=== PATIENT | male | born 1955 | race Asian ===

== ENCOUNTER 2023-11-22 06:16 | Day surgery (SDC) | payer OTHER ==
[2023-11-14 09:54] VITALS: BMI 24.7
[2023-11-22] MEDS ORDERED: PROPOFOL 40 ML ONE (07:12)
[2023-11-22] MEDS ORDERED: MIDAZOLAM HCL 2 MG/2 ML SINGLE DOSE VIAL ONE (07:12)
[2023-11-22] MEDS ORDERED: BUPIVACAINE LIPOSOME/PF (EXPAREL) 266 MG/20 ML VIAL ONE (07:15)
[2023-11-22] MEDS ORDERED: ACETAMINOPHEN INJECTION 100 ML IVPB ONE (07:15)
[2023-11-22] MEDS ORDERED: BUPIVACAINE HCL/PF 0.5% (5MG/ML) 10 ML VIAL ONE (07:15)
[2023-11-22] MEDS ORDERED: ACETAMINOPHEN 325 MG TABLET (FP) PO PRN (07:30)
[2023-11-22] MEDS ORDERED: ONDANSETRON 4 MG/2 ML VIAL IVPUSH PRN ×2 (07:30→10:17)
[2023-11-22] MEDS ORDERED: oxyCODONE HCL 5 MG TABLET PO PRN (07:30)
[2023-11-22] MEDS ORDERED: ceFAZolin SODIUM 1 GM VIAL ONE ×2 (08:08)
[2023-11-22] MEDS ORDERED: HYDROCORTISONE SOD SUCCINATE 100 MG/2 ML VIAL ONE (08:08)
[2023-11-22] MEDS ORDERED: TRANEXAMIC ACID 1000 MG/10 ML VIAL ONE ×2 (08:09→09:15)
[2023-11-22] MEDS ORDERED: ONDANSETRON 4 MG/2 ML VIAL ONE (08:30)
[2023-11-22] MEDS ORDERED: KETOROLAC TROMETHAMINE 30 MG/1 ML VIAL ONE (08:30)
[2023-11-22] MEDS ORDERED: PROPOFOL 20 ML ONE (09:51)
[2023-11-22] MEDS ORDERED: predniSONE 5 MG TABLET (UD) PO SCH ×2 (10:00→14:00)
[2023-11-22] MEDS ORDERED: MAGNESIUM HYDROX 2400MG/30ML ORAL SUSPENSION 30 ML CUP PO PRN (10:17)
[2023-11-22] MEDS ORDERED: MAG HYDROX/AL HYDROX/SIMETH 30 ML UNIT-DOSE CUP PO PRN (10:17)
[2023-11-22] MEDS: LACTATED RINGERS SOLUTION 1,000 ML IV SCH (11:30)
[2023-11-22 12:35] VITALS: RESP 18
[2023-11-22] MEDS ORDERED: predniSONE 5 MG TABLET (UD) PO ONE (14:00)
[2023-11-22] MEDS: ACETAMINOPHEN 1000 MG/100 ML BAG IVPB SCH (17:35)
[2023-11-22] MEDS: CEFAZOLIN SODIUM 2 GM in DEXTROSE 5%-WATER 100 ML IVPB SCH (17:35)
[2023-11-22] MEDS: oxyCODONE HCL 5 MG TABLET PO PRN (19:58)
[2023-11-22] MEDS: ASPIRIN 81 MG CHEWABLE TABLETS PO SCH (21:29)
[2023-11-22] MEDS: CELECOXIB 100 MG CAPSULE PO SCH (21:29)
[2023-11-22] MEDS: ASCORBIC ACID 500 MG TABLET (FP) PO SCH (21:29)
[2023-11-22] MEDS: SENNOSIDES/DOCUSATE COMBO (SENNA PLUS) TABLET (UD) PO SCH (21:29)
[2023-11-22] MEDS: FAMOTIDINE 20 MG TABLET PO SCH (21:29)
[2023-11-22] MEDS: GABAPENTIN 300 MG CAPSULE PO SCH (21:30)
[2023-11-23] MEDS: oxyCODONE HCL 5 MG TABLET PO PRN ×4 (02:01→14:18)
[2023-11-23] MEDS: CEFAZOLIN SODIUM 2 GM in DEXTROSE 5%-WATER 100 ML IVPB SCH (02:01)
[2023-11-23] MEDS: ACETAMINOPHEN 1000 MG/100 ML BAG IVPB SCH ×2 (02:02→09:14)
[2023-11-23] MEDS: LACTATED RINGERS SOLUTION 1,000 ML IV SCH (07:32)
[2023-11-23] MEDS ORDERED: TRANEXAMIC ACID 1000 MG/10 ML VIAL IVPUSH ONE (09:00)
[2023-11-23] MEDS ORDERED: TRANEXAMIC ACID 1000 MG/10 ML VIAL IVPB ONE (09:00)
[2023-11-23] MEDS ORDERED: TRANEXAMIC ACID - 1,000 MG in SODIUM CHLORIDE 100 ML IVPB ONE (09:00)
[2023-11-23] MEDS: CEPHALEXIN MONOHYDRATE 500 MG CAPSULE (UD) PO SCH ×2 (09:12→16:08)
[2023-11-23] MEDS: ASPIRIN 81 MG CHEWABLE TABLETS PO SCH (09:12)
[2023-11-23] MEDS: GABAPENTIN 300 MG CAPSULE PO SCH (09:12)
[2023-11-23] MEDS: CELECOXIB 100 MG CAPSULE PO SCH (09:12)
[2023-11-23] MEDS: ASCORBIC ACID 500 MG TABLET (FP) PO SCH (09:12)
[2023-11-23] MEDS: SENNOSIDES/DOCUSATE COMBO (SENNA PLUS) TABLET (UD) PO SCH (09:13)
[2023-11-23] MEDS: FAMOTIDINE 20 MG TABLET PO SCH (09:13)
[2023-11-23] MEDS ORDERED: MULTIVITAMINS (DAILY MVI) TABLET (FP) PO SCH (10:00)
[2023-11-23] MEDS ORDERED: LEFLUNOMIDE 10 MG TABLET PO SCH (10:00)
[2023-11-23] MEDS ORDERED: TELMISARTAN PO SCH (10:00)
[2023-11-23] MEDS ORDERED: amLODIPine BESYLATE 5 MG TABLET (FP) PO SCH (10:00)
[2023-11-23] MEDS ORDERED: LOSARTAN POTASSIUM 50 MG TABLET PO SCH (10:00)
[2023-11-23] MEDS ORDERED: AMLODIPINE PO SCH (10:00)
[2023-11-23] MEDS ORDERED: [UNRECOGNIZED DRUG - OTHER] PO SCH (10:00)
[2023-11-23] MEDS ORDERED: predniSONE 5 MG TABLET (UD) PO SCH (10:00)
[2023-11-23] MEDS ORDERED: FOLIC ACID 1 MG TABLET (FP) PO SCH (10:00)
[2023-11-23] MEDS ORDERED: ONDANSETRON 4 MG/2 ML VIAL IVPUSH PRN (10:41)
[2023-11-23 17:37] VITALS: BP 126/80; PULSE 71; TEMP 98.1
== END 2023-11-23 17:20 | disposition home or self-care (01) ==
LOC: FASUSAT 06:16 → FM/S 11:56 → FASUSAT 11-23 17:20
PROVIDERS: ATTEND Orthopaedic Surgery
PROC: 0SRC0J9 Replacement of Right Knee Joint with Synthetic Substitute, Cemented, Open Approach (ICD-10-PCS; principal; 2023-11-22 08:27)
DX: M17.11 Unilateral primary osteoarthritis, right knee (principal); M06.9 Rheumatoid arthritis, unspecified
CPT/HCPCS: 27447; C1776; 73560-TC-RT-FY; 94760; 97010-GP; 97116-GP; 97162-GP; C1889